=== PATIENT | female | born 1990 | race Caucasian/White ===

== ENCOUNTER 2020-08-31 11:59 | Inpatient (IN) | payer OTHER ==
[~2020-08-31] VITALS: Ht 162.6 cm; Wt 83.9 kg
[~2020-08-31 11:59] MED LIST: NKA; PEPCID40 MG PO; PHENERGAN25 MG PO
== END 2020-09-04 14:42 | disposition home or self-care (01) | DRG 585 ==
LOC: ER 11:59 → SEC-K 14:09 → SURH 14:09
PROVIDERS: ADMIT Specialist; ATTEND Specialist
PROC: 0H9T0ZX Drainage of Right Breast, Open Approach, Diagnostic (ICD-10-PCS; principal; 2020-09-01 05:45)
DX: N61.1 Abscess of the breast and nipple (principal); Z20.828 Contact with and (suspected) exposure to other viral communicable diseases

== ENCOUNTER 2021-06-15 07:25 | Day surgery (SDC) | payer OTHER | END 2021-06-15 15:45 | disposition home or self-care (01) | LOC: CIR.AMB 07:25 | PROVIDERS: ATTEND Specialist | DX: N61.1 Abscess of the breast and nipple (principal); Z20.822 Contact with and (suspected) exposure to COVID-19 ==